=== PATIENT | female | born 1955 | race Caucasian/White ===

== ENCOUNTER → 2016-09-15 | Outpatient (CLI) | payer OTHER ==
[~2016-09-15] MED LIST: AMLO5TAB2 PO; ASCO-262 PO; CARB200T6 PO; CHOL200025 PO; CYAN10006 PO; GLIM1TAB; HYDR-3812 PO; LEVO100T7 PO; LEVO112T55 PO; LINA5TAB PO; LISI-552 PO; PANT40TA3 PO; PRAV40TA2 PO; TRAZ300T3; VENL75CA93 PO
--- OUTSIDE RECORDS SUMMARY | 2016-09-15 10:29 | XMS REPORT | Continuity of Care Document ---
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 No 05/11/16 12:16pm Organ Donor No 05/11/16 12:16pm Resuscitation Status Full Code 05/11/16 12:16pm Problems Active Problems Medical Problem Onset Date Status Hypertensive urgency Unknown Acute Laceration of finger of right hand Unknown Acute Medications Current Home Medications Medication Dose Units Route Directions Days/Qty Instructions Start Date Linagliptin 5 Mg 5 Mg Oral Daily 04/17/16 Venlafaxine Hcl 75 Mg 75 Mg Oral Daily 04/17/16 Lisinopril 20 Mg 10-20 Mg Oral Twice A Day take 1 20mg tab in am, take 1/2 of 20mg tab at hs 04/17/16 Amlodipine Besylate 5 Mg 5 Mg Oral Daily 04/17/16 Pravastatin Sodium 40 Mg 40 Mg Oral Bedtime 04/17/16 Carbamazepine 200 Mg 200 Mg Oral Twice A Day 04/17/16 Pantoprazole Sodium 40 Mg 40 Mg Oral Daily 04/17/16 Ascorbate Calcium 500 Mg 500 Mg Oral Daily 05/11/16 Cholecalciferol (Vitamin D3) 2,000 Unit 4,000 Unit Oral Daily take 2 (2 ,000 units) 05/11/16 Cyanocobalamin (Vitamin B-12) 1,000 Mcg 1,000 Mcg Oral Twice A Day 05/11/16 Past Home Medications Medication Directions Ordered Status Glimepiride 1 Mg Tablet, 04/17/16 Discontinued Trazodone Hcl 300 Mg Tablet, 04/17/16 Discontinued Social History Social History Problem Response Recorded Date/Time Alcohol Use Rarely Uses 05/11/2016 12:16pm Recreational Drug Use No 05/11/2016 12:16pm Recent Foreign Travel No 05/11/2016 12:15pm Recent Infectious Disease Exposure No 05/11/2016 12:15pm Smoking Status Never a Smoker 05/11/2016 12:16pm Recent Hopitalizations No 05/11/2016 12:16pm Query Response Start Date Stop Date Smoking Status Never a Smoker Hospital Discharge Instructions No hospital discharge instructions. Plan of Care Discharge Date 05/11/16 12:54pm Prescriptions See Medication Section Functional Status No functional status results. Allergies, Adverse Reactions, Alerts Allergen Type Severity Reaction Status Last Updated Morphine Allergy Unknown Active 04/17/16 Aspirin Allergy Unknown hx of ulcers Active 05/11/16 lactose ([id number]) Allergy Unknown Active 05/11/16 metformin ([id number]) Allergy Unknown Active 04/17/16 Immunizations Name Given Type DTaP-Tetanus, Dipth, Pertuss P/F (Boostrix) 04/17/16 Administered Vital Signs Acute Vital Signs Vital Response Date/Time Temperature (Fahrenheit) 99.0 degrees F (97.6 - 99.5) 04/26/2016 1:34pm Temperature (Calculated Celsius) 37.70608 degrees C (36.4 - 37.5) 04/26/2016 1:08pm Temperature Source Tympanic 04/26/2016 1:34pm Pulse Rate (adult) 88 bpm (60 - 90) 05/11/2016 12:15pm Respiratory Rate 18 bpm (12 - 24) 04/26/2016 1:34pm O2 Sat by Pulse Oximetry 98 % (88 - 100) 05/11/2016 12:15pm Blood Pressure 156/107 mm Hg 05/11/2016 12:15pm Blood Pressure Mean 123 mm Hg 05/11/2016 12:15pm Pain Numeric Pain Scale 0-No Pain 05/11/2016 12:15pm Height (Feet) 5 feet 05/11/2016 12:15pm Height (Inches) 6.00 inches 05/11/2016 12:15pm Height (Calculated Centimeters) 167.130295 cm 05/11/2016 12:15pm Weight (Pounds) 238 pounds 05/11/2016 12:15pm Weight (Ounces) 7.0 oz 05/11/2016 12:15pm Weight (Calculated Grams) 111575.43 gm 05/11/2016 12:15pm Weight (Calculated Kilograms) 108.191537 kilograms 05/11/2016 12:15pm Calculated BMI 38.5 05/11/2016 12:15pm Capillary Refill Capillary Refill Less Than 3 Seconds 04/17/2016 7:59am Results Pending Laboratory Results Test Name Collection Date/Time Procedures Procedure Status Date Provider(s) BIOPSY OF THYROID Completed 04/26/16 NICKIE DASILVA MD Encounters Encounter Location Arrival/Admit Date Discharge/Depart Date Attending Provider Departed Clinic [facility] 05/11/16 11:56am 05/11/16 12: 54pm BLADE TRIPP MD Registered Clinic [facility] 04/26/16 12:35pm BLADE TRIPP MD Departed Emergency Room [facility] 04/17/16 7:56am 04/17 9:09am USMAN LEIJA MD
--- NOTE | 2016-09-21 20:07 | Diagnostic Imaging Report ---
Bilateral screening mammogram The current study was also evaluated with a Computer Aided Detection (CAD) system. Indication: Screening. No current complaints stated on the questionnaire. COMPARISON: 07/22/15 FINDINGS: The breasts are composed of scattered fibroglandular densities. There are occasional benign-appearing calcifications. Allowing for technique and positional differences, no suspicious change is seen. IMPRESSION: No significant change. ACR BI-RADS Category 2: Benign findings. Result letter will be mailed to the patient. Note: At least 10% of breast cancer is not imaged by mammography. Dictated by: Dictated on workstation # [id number]
== END ==
LOC: RAD 10:26
PROVIDERS: ATTEND Nurse Practitioner Family
DX: Z12.31 Encounter for screening mammogram for malignant neoplasm of breast (principal)
CPT/HCPCS: 77067

== ENCOUNTER → 2018-01-23 | Outpatient (CLI) | payer OTHER ==
[~2018-01-23] VITALS: Ht 167.6 cm; Wt 117.0 kg
[~2018-01-23] MED LIST changes: +ACHD5005 PO; +CATHETER FLUSH 10 ML SYR IV PRN; -HYDR-3812 PO; +REGADENOSON 0.4 MG/5 ML SYR (LEXISCAN) IV ONE
[2018-01-23 08:10] VITALS: BP 188/107
[2018-01-23 08:12] VITALS: BP 200/103
--- NOTE | 2018-01-24 06:49 | STRESS TEST ---
DATE OF SERVICE: 01/23/2018 NUCLEAR MYOVIEW REPORT REFERRING PHYSICIAN: Dr. Sierra. SUMMARY: The patient was injected with 10.17 mCi of technetium-99 Myoview and the resting images were obtained. Then, the patient received a stress dose of 32.9 mCi of technetium-99 and the stress images were acquired. The resting and stress images were reviewed and compared in the short axis, horizontal long axis, and vertical long axis views. Review of the images showed good radiotracer uptake with no significant ischemia or infarction. SSS is 1, SDS 1, TID value 1.02. On the gated images, the left ventricle appeared to be normal size with normal contractility. Calculated ejection fraction of 52%. CONCLUSION: 1. No ischemia or infarction on SPECT images. 2. Normal left ventricular size with normal contractility. Calculated ejection fraction of 52%. Job ID: [id number] DocumentID: [id number] Dictated Date: 01/23/2018 16:11:53 Ballistics Tester Date: 01/23/2018 19:37:31 Dictated By: PEREZ BRAND MD
== END ==
LOC: CARD 06:38
PROVIDERS: ATTEND Internal Medicine
DX: R07.9 Chest pain, unspecified (principal)
CPT/HCPCS: 78452; 93017

== ENCOUNTER → 2018-04-19 | Outpatient (CLI) | payer OTHER ==
[~2018-04-19] MED LIST changes: -AMLO5TAB2 PO; +AMLO5TAB7 PO; -CATHETER FLUSH 10 ML SYR IV PRN; -REGADENOSON 0.4 MG/5 ML SYR (LEXISCAN) IV ONE
--- NOTE | 2018-04-21 19:19 | Diagnostic Imaging Report ---
The current study was also evaluated with a Computer Aided Detection (CAD) system. 3-D tomosynthesis was also performed and reviewed. INDICATION: Digital mammogram bilateral screening. This study was compared to the prior exams of 09/15/2016, 07/22/2015 and 02/13/2014. At this time, there are no current complaints. FINDINGS: There are scattered fibroglandular densities in both breasts which could obscure a lesion. Overall, there does not appear to have been any significant change when compared to the prior exam. No primary or secondary sign of malignancy is noted. 3D tomographic images fail to show any sign of malignancy. IMPRESSION: There is no radiographic evidence for malignancy. ACR BI-RADS Category 1: Negative. Result letter will be mailed to the patient. Note: At least 10% of breast cancer is not imaged by mammography. Dictated by: Dictated on workstation # [id number]
== END ==
LOC: RAD 11:10
PROVIDERS: ATTEND Internal Medicine
DX: Z12.31 Encounter for screening mammogram for malignant neoplasm of breast (principal)
CPT/HCPCS: 77067

== ENCOUNTER 2019-06-27 08:19 | Emergency (ER) | payer MEDICARE, OTHER ==
[~2019-06-27] VITALS: Ht 167 cm; Wt 89.0 kg
[~2019-06-27 08:19] MED LIST changes: -AMLO5TAB7 PO; +AMLO5TAB9 PO; +CYAN-41 PO; -CYAN10006 PO; -GLIM1TAB; +GLIM1TAB2
[2019-06-27] MEDS ORDERED: METF500T19 (08:47)
[2019-06-27] MEDS ORDERED: AMLO2.5T4 (08:47)
[2019-06-27] MEDS ORDERED: ESTR1TAB24 (08:47)
[2019-06-27] MEDS ORDERED: CLON1TAB13 (08:47)
[2019-06-27] MEDS ORDERED: LORA1TAB (08:47)
[2019-06-27] MEDS ORDERED: TETANUS,DIPTH,PERTUSS P/F (BOOSTRIX) 0.5 ML VIAL IM ONE (09:00)
--- NOTE | 2019-06-27 09:18 | ED Fall/Injury ---
General Chief Complaint: Trauma-Non Activation Stated Complaint: HEAD INJ Nursing Triage Note: PT CO OF FALL APPROX 1HOUR AGO AT [facility]. PT DENIES LOC PT HAS KNOT ON FOREHEAD AND SKINNED UP R KNEE. Source: patient Exam Limitations: no limitations History of Present Illness Date Seen by Provider: Jun 27, 2019 Time Seen by Provider: 08:41 Initial Comments Here with report of fall while at the [facility]. States that she tripped over a mat and went down on her right knee and then did hit her forehead on the floor. Has a small abrasion on the bridge of her nose where her glasses cot. Also has abrasion to her knee. Does have hematoma to the forehead. Denies loss consciousness. She is not on blood thinners. Tetanus is not up-to-date. Location Injury Occurred: [facility] Occurred: just prior to arrival (approximately 30-45 minutes ago) Severity: mild, moderate Injuries/Pain Location: head, lower extremity Context: tripped Loss of Consciousness: no loss of consciousness Modifying Factors: Improves With Rest Associated Symptoms (Fall): No Abdominal Pain, No Confusion; Headache; No Nausea/Vomiting, No Neck Pain, No Shortness of Air, No Trouble Walking Allergies and Home Medications Allergies Coded Allergies: aspirin (Verified Allergy, Unknown, hx of ulcers, 05/11/16) lactose (Verified Allergy, Unknown, 05/11/16) metformin (Verified Allergy, Unknown, 04/17/16) morphine (Verified Adverse Reaction, Mild, N/V, 05/14/16) naproxen (Verified Adverse Reaction, Unknown, HX OF ULCERS, 05/11/16) Home Medications Amlodipine Besylate 5 Mg Tablet, 5 MG PO DAILY, (Reported) Ascorbate Calcium 500 Mg Tablet, 500 MG PO DAILY, (Reported) Carbamazepine 200 Mg Tablet, 200 MG PO BID, (Reported) Cholecalciferol (Vitamin D3) 2,000 Unit Tablet, 4,000 UNIT PO DAILY, (Reported) take 2 (2,000 units) Cyanocobalamin (Vitamin B-12) 1,000 Mcg Tablet, 1,000 MCG PO BID, (Reported) Levothyroxine Sodium 112 Mcg Tablet, 112 MCG PO DAILY, (Reported) Linagliptin 5 Mg Tablet, 5 MG PO DAILY, (Reported) Lisinopril 20 Mg Tablet, 30 MG PO DAILY, (Reported) take 1 1/2 of 20mg tab Pantoprazole Sodium 40 Mg Tablet.dr, 40 MG PO DAILY, (Reported) Pravastatin Sodium 40 Mg Tablet, 40 MG PO HS, (Reported) Venlafaxine HCl 75 Mg Cap.er.24h, 75 MG PO DAILY, (Reported) Patient Home Medication List Home Medication List Reviewed: Yes Review of Systems Review of Systems Constitutional: No chills, No fever Eyes: No Symptoms Reported Ears, Nose, Mouth, Throat: see HPI; denies epistaxis, denies throat pain Respiratory: no symptoms reported Cardiovascular: no symptoms reported Gastrointestinal: no symptoms reported Musculoskeletal: joint pain; No neck pain Skin: see HPI, change in color, lesions Psychiatric/Neurological: Headache; Denies Weakness Past Icldcir-Uboyjf-Sjwmed Hx Past Med/Social Hx: Reviewed Nursing Past Med/Soc Hx Patient Social History Alcohol Use: Denies Use Alcohol Beverage of Choice: Beer Recreational Drug Use: No Smoking Status: Never a Smoker Recent Foreign Travel: No Contact w/Someone Who Travel: No Recent Infectious Disease Expo: No Recent Hopitalizations: No Physical Abuse: No Sexual Abuse: No Immunizations Up To Date Tetanus Booster (TDap): Unknown PED Vaccines UTD: No Date of Influenza Vaccine: May 04, 2016 Seasonal Allergies Seasonal Allergies: Yes Past Medical History Surgeries: Yes (L KNEE,R FOOT, L SHOULDER,CATARACT,RETNIA R,) Eye Surgery, Gallbladder, Hysterectomy, Orthopedic, Rectal, Thyroidectomy Respiratory: No Cardiac: Yes High Cholesterol, Hypertension Neurological: Yes Headaches /Migraines, TIA Reproductive Disorders: No 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 Sexually Transmitted Disease: No HIV/AIDS: No Gastrointestinal: Yes (fatty liver) Gastroesophageal Reflux, Polyps, Ulcer, Irritable Bowel Musculoskeletal: Yes (bilat carpal tunnel) Arthritis, Chronic Back Pain Endocrine: Yes (thyroid nodules) Diabetes, Non-Insulin dep Cataract, Double Vision Loss of Vision: Bilateral Hearing Impairment: Denies Cancer: No Psychosocial: Yes Anxiety, Bipolar, Depression Integumentary: No Blood Disorders: No (ANEMIA) Adverse Reaction/Blood Tranf: No (N/A) Family Medical History Reviewed Nursing Family Hx Cardiovascular disease 19 MOTHER G8 SISTER Completed stroke G8 SISTER Diabetes mellitus G8 SISTER FH: skin cancer G8 BROTHER Hypertension G8 SISTER Physical Exam Vital Signs Vital Signs - First Documented 06/27/19 08:25 Temp 37.0 Pulse 90 Resp 18 B/P (MAP) 185/93 (123) Pulse Ox 96 Capillary Refill : Less Than 3 Seconds Height, Weight, BMI Height: 5'6.00" Weight: 258lbs. 0.0oz. 117.700562je; 31.00 BMI Method:Stated General Appearance: WD/WN, no apparent distress HEENT: PERRL/EOMI, TMs normal, pharynx normal Neck: full range of motion, supple Cardiovascular: regular rate, rhythm, no murmur Respiratory: lungs clear, normal breath sounds Gastrointestinal: non tender, soft Back: normal inspection, no CVA tenderness, no vertebral tenderness Extremities: non-tender, normal inspection Neurologic/Psychiatric: alert, oriented x 3 Skin: normal color, warm/dry [place] Coma Score Best Eye Response: (4) Open Spontaneously Best Verbal Response: (5) Oriented Best Motor Response: (6) Obeys Commands Progress/Results/Core Measures Results/Orders My Orders Orders - RADHA HAMMOND MD Ct Head Wo (06/27/19 08:48) Dipht,Pertuss(Acell),Tet Adult (Boostrix (06/27/19 09:00) Acetaminophen Tablet (Tylenol Tablet) (06/27/19 09:22) Medications Given in ED Current Medications Medications Dose Ordered Sig/Rupert Route Start Time Stop Time Status Last Admin Dose Admin Acetaminophen 500 mg STK-MED ONCE .ROUTE 06/27/19 09:22 06/27/19 09:25 DC 06/27/19 09:27 1,000 MG Diphtheria/ Tetanus/Acell Pertussis 0.5 ml ONCE ONCE IM 06/27/19 09:00 06/27/19 09:01 DC 06/27/19 09:14 0.5 ML Vital Signs/I&O 06/27/19 08:25 Temp 37.0 Pulse 90 Resp 18 B/P (MAP) 185/93 (123) Pulse Ox 96 Blood Pressure Mean: 123 POS Progress Progress Note : Progress Note Seen and evaluated. We will get CT of the head due to bruising of the forehead. Tetanus will be updated. Wound cleaned by nursing. Monitor patient. 0944: Tylenol 1 g by mouth given for headache. She is overall doing okay. CT head negative. Discharged home with return precautions. Patient verbalize understanding instructions and agreement with plan. Diagnostic Imaging Diagonstic Imaging: CT Plain Films/CT/US/NM/MRI: head Comments [facility]. POS [place], [place] POS NAME: GIORGI COLLAZO [facility] REC#: [id number] PT STATUS: REG ER : 1955 PHYSICIAN: RADHA HAMMOND MD ADMIT DATE: 06/27/19/ER Draft POSDate of Exam:06/27/19 CT HEAD WO PROCEDURE: CT head without contrast. TECHNIQUE: Multiple contiguous axial images were obtained through the brain without the use of intravenous contrast. Auto Exposure Controls were utilized during the CT exam to meet ALARA standards for radiation dose reduction. INDICATION: Status post fall, hitting head. CORRELATION STUDY: None FINDINGS: Left frontal scalp hematoma is present. The bony calvarium appearing intact. Intracranially, the ventricles and sulci appearing age appropriate. No abnormal areas of decreased attenuation to suggest edema. Mild left basal ganglia calcification. No intracranial hemorrhage. Basilar cisterns are maintained. Mild intracranial vascular calcification. Paranasal sinuses and mastoid air cells generally clear. IMPRESSION: 1. Left frontal scalp hematoma. Negative for acute traumatic intracranial abnormality. Dictated on workstation # [id number] Dict: 06/27/19929 Trans: [birth year]/1932 DO [id number] Interpreted by: CARLOS COLÓN DO Electronically signed by: Reviewed: Reviewed by Me Departure Impression Primary Impression: Head injury Qualified Codes: S09.90XA - Unspecified injury of head, initial encounter Additional Impressions: Knee contusion Qualified Codes: S80.01XA - Contusion of right knee, initial encounter Multiple abrasions Disposition: HOME, SELF-CARE Condition: Improved Departure-Patient Inst. Decision time for Depature: 09:54 Referrals: AMARJIT CORMIER DO (PCP/Family) Primary Care Physician Patient Instructions: Closed Head Injury (DC), Contusion (DC), Skin Abrasions (DC) Add. Discharge Instructions: All discharge instructions reviewed with patient and/or family. Voiced understanding. You may take Tylenol/acetaminophen 1000 mg every 8 hours as needed for pain. Use ice packs to areas of concern 20 minutes per hour as needed. Follow up with your Dr. in a few days for recheck. Return for worse pain, weakness, vision or b alance problems, worsening headache, vomiting or other concerns as needed. RADHA HAMMOND MD Jun 27, 2019 09:18 POS
[2019-06-27] MEDS ORDERED: ACETAMINOPHEN 500 MG TAB (TYLENOL) ONE (09:22)
--- NOTE | 2019-06-27 09:32 | Diagnostic Imaging Report ---
PROCEDURE: CT head without contrast. TECHNIQUE: Multiple contiguous axial images were obtained through the brain without the use of intravenous contrast. Auto Exposure Controls were utilized during the CT exam to meet ALARA standards for radiation dose reduction. INDICATION: Status post fall, hitting head. CORRELATION STUDY: None FINDINGS: Left frontal scalp hematoma is present. The bony calvarium appearing intact. Intracranially, the ventricles and sulci appearing age appropriate. No abnormal areas of decreased attenuation to suggest edema. Mild left basal ganglia calcification. No intracranial hemorrhage. Basilar cisterns are maintained. Mild intracranial vascular calcification. Paranasal sinuses and mastoid air cells generally clear. IMPRESSION: 1. Left frontal scalp hematoma. Negative for acute traumatic intracranial abnormality. Dictated by: Dictated on workstation # [id number]
[2019-06-27 10:03] VITALS: BP 160/85
== END 2019-06-27 10:03 | disposition home or self-care (01) ==
LOC: EDUNIT# 08:19 → ER 08:20
DX: S09.90XA Unspecified injury of head, initial encounter (principal); S80.01XA Contusion of right knee, initial encounter; S00.31XA Abrasion of nose, initial encounter; I10 Essential (primary) hypertension; E11.9 Type 2 diabetes mellitus without complications; F41.9 Anxiety disorder, unspecified; F31.9 Bipolar disorder, unspecified; E78.00 Pure hypercholesterolemia, unspecified; G43.909 Migraine, unspecified, not intractable, without status migrainosus; D64.9 Anemia, unspecified; K21.9 Gastro-esophageal reflux disease without esophagitis; K58.9 Irritable bowel syndrome, unspecified; R40.2142 Coma scale, eyes open, spontaneous, at arrival to emergency department; R40.2252 Coma scale, best verbal response, oriented, at arrival to emergency department; R40.2362 Coma scale, best motor response, obeys commands, at arrival to emergency department; Z86.73 Personal history of transient ischemic attack (TIA), and cerebral infarction without residual deficits; Z23 Encounter for immunization; Z88.6 Allergy status to analgesic agent; Z88.8 Allergy status to other drugs, medicaments and biological substances; Z88.5 Allergy status to narcotic agent; Z90.710 Acquired absence of both cervix and uterus; Z82.49 Family history of ischemic heart disease and other diseases of the circulatory system; Z80.8 Family history of malignant neoplasm of other organs or systems; W01.198A Fall on same level from slipping, tripping and stumbling with subsequent striking against other object, initial encounter; Y92.39 Other specified sports and athletic area as the place of occurrence of the external cause
CPT/HCPCS: 70450; 90471; 90715

== ENCOUNTER → 2020-05-27 | Outpatient (CLI) | payer MEDICARE, OTHER ==
[~2020-05-27] MED LIST changes: +AMLO-250 PO; +AMLO2.5T4; -AMLO5TAB9 PO; +CLON1TAB13; +ESTR1TAB24; -GLIM1TAB2; +GLIM1TAB4; +LORA1TAB; +METF-865; -PANT40TA3 PO; +PANT40TA52 PO
--- NOTE | 2020-05-27 12:38 | Diagnostic Imaging Report ---
INDICATION: Routine screening. Comparison is made to prior mammogram 04/19/2018 and 09/13/2016. 2-D and 3-D bilateral screening mammography was performed with CAD. Scattered fibroglandular densities are identified bilaterally. The parenchymal pattern is stable. No mass or malignant-appearing microcalcifications are seen. Axillae are unremarkable. IMPRESSION: BI-RADS Category 2 No mammographic features suspicious for malignancy are identified. ACR BI-RADS Category 2: Benign findings. Result letter will be mailed to the patient. Note: At least 10% of breast cancer is not imaged by mammography. Dictated by: Dictated on workstation # [id number]
== END ==
LOC: RAD 09:30
PROVIDERS: ATTEND Nurse Practitioner Family
DX: Z12.31 Encounter for screening mammogram for malignant neoplasm of breast (principal)
CPT/HCPCS: 77063; 77067

== ENCOUNTER 2020-11-17 05:29 | Emergency (ER) | payer MEDICARE, OTHER ==
[~2020-11-17] VITALS: Ht 168 cm; Wt 97.0 kg
[~2020-11-17 05:29] MED LIST changes: -LISI-552 PO; +LISI20TA26 PO
[2020-11-17 06:15] LABS: BASOPHILS # (AUTO) 0.1 10^3/uL (0.0-0.1); BASOPHILS % (AUTO) 1 % (0-10); EOSINOPHILS # (AUTO) 0.1 10^3/uL (0.0-0.3); EOSINOPHILS % (AUTO) 1 % (0-10); HEMATOCRIT 43 % (35-52); HEMOGLOBIN 13.8 g/dL (11.5-16.0); LYMPHOCYTES # (AUTO) 1.5 10^3/uL (1.0-4.0); LYMPHOCYTES % (AUTO) 17 % (12-44); MEAN CORPUSCULAR HEMOGLOBIN 30 pg (25-34); MEAN CORPUSCULAR HGB CONC 32 g/dL (32-36); MEAN CORPUSCULAR VOLUME 94 fL (80-99); MEAN PLATELET VOLUME 11.9 fL (9.0-12.2); MONOCYTES # (AUTO) 0.5 10^3/uL (0.0-1.0); MONOCYTES % (AUTO) 6 % (0-12); NEUTROPHILS # (AUTO) 6.6 10^3/uL (1.8-7.8); NEUTROPHILS % (AUTO) 75 % (42-75); PLATELET COUNT 196 10^3/uL (130-400); WHITE BLOOD COUNT 8.7 10^3/uL (4.3-11.0)
[2020-11-17 06:19] LABS: BILIRUBIN,URINE NEGATIVE (NEGATIVE); CLARITY,URINE CLEAR; COLOR,URINE ORANGE; GLUCOSE, URINE (UA) NEGATIVE (NEGATIVE); KETONES,URINE TRACE (NEGATIVE); LEUKOCYTE ESTERASE ,URINE NEGATIVE (NEGATIVE); NITRITE,URINE NEGATIVE (NEGATIVE); PROTEIN,URINE TRACE (NEGATIVE)
--- NOTE | 2020-11-17 06:19 | ED Cardiac General ---
History of Present Illness General Chief Complaint: Cardiac/General Problems Stated Complaint: HIGH BLOOD PRESSURE Source: patient, old records Exam Limitations: no limitations (PERRY SMITH MD) History of Present Illness Date Seen by Provider: Nov 17, 2020 Time Seen by Provider: 05:45 Initial Comments This 63-year-old woman presents to the emergency room with complaints of hypertension, lightheadedness, and dyspnea on exertion for the last few days. She denies any symptoms of infectious illness such as fever, vomiting, or cough. She reports going to an urgent care clinic on Tuesday where her diastolic blood pressure was 102. Her amlodipine dosage was increased. She presents with a log of her blood pressures which seem to be mostly in the 150/80 range. (PERRY SMITH MD) Allergies and Home Medications Allergies Coded Allergies: aspirin (Verified Allergy, Unknown, hx of ulcers, 05/11/16) lactose (Verified Allergy, Unknown, 05/11/16) metformin (Verified Allergy, Unknown, 04/17/16) morphine (Verified Adverse Reaction, Mild, N/V, 05/14/16) naproxen (Verified Adverse Reaction, Unknown, HX OF ULCERS, 05/11/16) Home Medications Amlodipine Besylate 5 Mg Tablet, 5 MG PO DAILY, (Reported) Ascorbate Calcium 500 Mg Tablet, 500 MG PO DAILY, (Reported) Carbamazepine 200 Mg Tablet, 200 MG PO BID, (Reported) Cholecalciferol (Vitamin D3) 2,000 Unit Tablet, 4,000 UNIT PO DAILY, (Reported) take 2 (2,000 units) Cyanocobalamin (Vitamin B-12) 1,000 Mcg Tablet, 1,000 MCG PO BID, (Reported) Levothyroxine Sodium 112 Mcg Tablet, 112 MCG PO DAILY, (Reported) Linagliptin 5 Mg Tablet, 5 MG PO DAILY, (Reported) Lisinopril 20 Mg Tablet, 30 MG PO DAILY, (Reported) take 1 1/2 of 20mg tab Pantoprazole Sodium 40 Mg Tablet.dr, 40 MG PO DAILY, (Reported) Pravastatin Sodium 40 Mg Tablet, 40 MG PO HS, (Reported) Venlafaxine HCl 75 Mg Cap.er.24h, 75 MG PO DAILY, (Reported) Patient Home Medication List Home Medication List Reviewed: Yes (PERRY SMITH MD) Review of Systems Review of Systems Constitutional: no symptoms reported EENTM: No Symptoms Reported Respiratory: No Symptoms Reported Cardiovascular: See HPI Gastrointestinal: No Symptoms Reported Genitourinary: No Symptoms Reported Musculoskeletal: no symptoms reported Skin: no symptoms reported Psychiatric/Neurological: See HPI Endocrine: No Symptoms Reported Hematologic/Lymphatic: No Symptoms Reported (PERRY SMITH MD) Past Jggfzub-Ckqwhg-Sxcbpr Hx Past Med/Social Hx: Reviewed Nursing Past Med/Soc Hx (PERRY SMITH MD) Patient Social History Alcohol Use: Denies Use Number of Drinks Today: AA Alcohol Beverage of Choice: Beer Smoking Status: Never a Smoker Recent Hopitalizations: No (PERRY SMITH MD) Immunizations Up To Date Tetanus Booster (TDap): Unknown PED Vaccines UTD: No Date of Influenza Vaccine: May 04, 2016 (PERRY SMITH MD) Seasonal Allergies Seasonal Allergies: Yes (PERRY SMITH MD) Past Medical History Surgeries: Yes (L KNEE,R FOOT, L SHOULDER,CATARACT) Eye Surgery, Gallbladder, Hysterectomy, Orthopedic, Rectal, Thyroidectomy Respiratory: No Cardiac: Yes High Cholesterol, Hypertension Neurological: Yes Headaches /Migraines, TIA Reproductive Disorders: No [employer] History: Hysterectomy Sexually Transmitted Disease: No HIV/AIDS: No Gastrointestinal: Yes (fatty liver) Gastroesophageal Reflux, Polyps, Ulcer, Irritable Bowel Musculoskeletal: Yes (bilat carpal tunnel) Arthritis, Chronic Back Pain Endocrine: Yes (thyroid nodules) Diabetes, Non-Insulin dep HEENT: Yes Cataract, Double Vision Loss of Vision: Bilateral Hearing Impairment: Denies Cancer: No Psychosocial: Yes Anxiety, Bipolar, Depression Integumentary: No Blood Disorders: No (ANEMIA) Adverse Reaction/Blood Tranf: No (N/A) (PERRY SMITH MD) Family Medical History Cardiovascular disease 19 MOTHER G8 SISTER Completed stroke G8 SISTER Diabetes mellitus G8 SISTER FH: skin cancer G8 BROTHER Hypertension G8 SISTER Physical Exam Vital Signs Vital Signs - First Documented 11/17/20 05:37 Temp 35.2 Pulse 86 Resp 22 B/P (MAP) 136/65 (88) O2 Delivery Room Air (JULES CHERRY MD) Vital Signs Capillary Refill : Less Than 3 Seconds (PERRY SMITH MD) Height, Weight, BMI Height: 5'6.00" Weight: 258lbs. 0.0oz. 117.017587xu; 31.00 BMI Method:Stated General Appearance: WD/WN, Anxious HEENT: PERRL/EOMI, Normal ENT Inspection Neck: Normal Inspection Respiratory: Lungs Clear, Normal Breath Sounds Cardiovascular: Regular Rate, Rhythm, No Edema, No Murmur Gastrointestinal: Non Tender, Soft Extremity: Normal Inspection, No Pedal Edema Neurologic/Psychiatric: Alert, Oriented x3, No Motor/Sensory Deficits, dsp engineer II- XII Norm as Tested, Other (Anxious) Skin: Normal Color, Warm/Dry (PERRY SMITH MD) Progress/Results/Core Measures Results/Orders Lab Results Laboratory Tests Test 11/17/20 06:05 11/17/20 06:13 Range/Units White Blood Count 8.7 4.3-11.0 10^3/uL Red Blood Count 4.60 3.80-5.11 10^6/uL Hemoglobin 13.8 11.5-16.0 g/dL Hematocrit 43 35-52 % Mean Corpuscular Volume 94 80-99 fL Mean Corpuscular Hemoglobin 30 25-34 pg Mean Corpuscular Hemoglobin Concent 32 32-36 g/dL Red Cell Distribution Width 13.4 10.0-14.5 % Platelet Count 196 130-400 10^3/uL Mean Platelet Volume 11.9 9.0-12.2 fL Immature Granulocyte % (Auto) 1 % Neutrophils (%) (Auto) 75 42-75 % Lymphocytes (%) (Auto) 17 12-44 % Monocytes (%) (Auto) 6 0-12 % Eosinophils (%) (Auto) 1 0-10 % Basophils (%) (Auto) 1 0-10 % Neutrophils # (Auto) 6.6 1.8-7.8 10^3/uL Lymphocytes # (Auto) 1.5 1.0-4.0 10^3/uL Monocytes # (Auto) 0.5 0.0-1.0 10^3/uL Eosinophils # (Auto) 0.1 0.0-0.3 10^3/uL Basophils # (Auto) 0.1 0.0-0.1 10^3/uL Immature Granulocyte # (Auto) 0.0 0.0-0.1 10^3/uL Sodium Level 141 135-145 MMOL/L Potassium Level 3.7 3.6-5.0 MMOL/L Chloride Level 101 98-107 MMOL/L Carbon Dioxide Level 25 21-32 MMOL/L Anion Gap 15 H 5-14 MMOL/L Blood Urea Nitrogen 16 7-18 MG/DL Creatinine 1.18 0.60-1.30 MG/DL Estimat Glomerular Filtration Rate 46 BUN/Creatinine Ratio 14 Glucose Level 165 H 70-105 MG/DL Calcium Level 9.5 8.5-10.1 MG/DL Corrected Calcium 9.3 8.5-10.1 MG/DL Magnesium Level 1.8 1.6-2.4 MG/DL Total Bilirubin 0.4 0.1-1.0 MG/DL Aspartate Amino Transf (AST/SGOT) 10 5-34 U/L Alanine Aminotransferase (ALT/SGPT) 12 0-55 U/L Alkaline Phosphatase 82 40-136 U/L Troponin I < 0.028 <0.028 NG/ML Total Protein 7.3 6.4-8.2 GM/DL Albumin 4.2 3.2-4.5 GM/DL Thyroid Stimulating Hormone (TSH) 1.21 0.35-4.94 UIU/ML Free Thyroxine 1.48 0.70-1.48 NG/DL Urine Color ORANGE Urine Clarity CLEAR Urine pH 6.0 5-9 Urine Specific Allyn >=1.030 1.016-1.022 Urine Protein TRACE H NEGATIVE Urine Glucose (UA) NEGATIVE NEGATIVE Urine Ketones TRACE H NEGATIVE Urine Nitrite NEGATIVE NEGATIVE Urine Bilirubin NEGATIVE NEGATIVE Urine Urobilinogen 0.2 < = 1.0 MG/DL Urine Leukocyte Esterase NEGATIVE NEGATIVE Urine RBC (Auto) TRACE-I NEGATIVE Urine RBC RARE /HPF Urine WBC RARE /HPF Urine Squamous Epithelial Cells 2-5 /HPF Urine Crystals NONE /LPF Urine Bacteria NEGATIVE /HPF Urine Casts NONE /LPF Urine Mucus SMALL H /LPF Urine Culture Indicated NO (JULES CHERRY MD) Vital Signs/I&O 11/17/20 05:37 Temp 35.2 Pulse 86 Resp 22 B/P (MAP) 136/65 (88) O2 Delivery Room Air (JULES CHERRY MD) Progress Progress Note : Time: 06:18 Progress Note Because of patient's anxiety I asked her to take her morning BuSpar. Labs are pending. The EKG was unremarkable. Care is being transitioned to Dr. Cherry at this time. (PERRY SMITH MD) Progress Note : Time: 07:10 Progress Note Patient care assumed a shift change with laboratory studies pending. Lab results obtained and evaluated. All of her labs are within normal limits. No abnormal cardiac function or electrolytes. Patient states that she is feeling better. She states she feels like her SOB and chest tightness happen when she gets anxious. She was concerned about her thyroid functions, It too, is within normal limits. Patient has a follow up appointment with her primary care doctor on of this next week. She is encouraged to talk to her provider about these episodes. She verbalizes understanding of her discharge instructions. All questions are sought and answered. She is stable for discharge. (JULES CHERRY MD) Initial ECG Impression Date: Nov 17, 2020 Initial ECG Impression Time: 05:55 Initial ECG Rate: 79 Initial ECG Rhythm: Normal Sinus Initial ECG Impression: Normal Comment Normal sinus rhythm with no ST elevation or depression. No abnormal intervals or axis deviation. (PERRY SMITH MD) Departure Impression Primary Impression: Anxiety about health Additional Impression: High blood pressure Qualified Codes: I10 - Essential (primary) hypertension Disposition: 01 HOME, SELF-CARE Condition: Stable Departure-Patient Inst. Decision time for Depature: 07:13 (JULSE CHERRY MD) Referrals: AMARJIT CORMIER DO (PCP/Family) Primary Care Physician Patient Instructions: Anxiety, Adult ED, High Blood Pressure Emergencies Add. Discharge Instructions: Please keep your follow up appointment with your primary care doctor on . Continue to take your medications as prescribed. Return to the Emergency Department for any new, concerning or emergent symptoms. PERRY SMITH MD Nov 17, 2020 06:19 JULES CHERRY MD Nov 17, 2020 07:14
[2020-11-17 06:28] LABS: BACTERIA,URINE NEGATIVE /HPF; RBC,URINE RARE /HPF; WBC,URINE RARE /HPF
[2020-11-17 06:28] LABS: ALANINE AMINOTRANSFERASE 12 U/L (0-55); ALBUMIN 4.2 GM/DL (3.2-4.5); ALKALINE PHOSPHATASE 82 U/L (40-136); BILIRUBIN,TOTAL 0.4 MG/DL (0.1-1.0); BUN/CREATININE RATIO 14; CALCIUM 9.5 MG/DL (8.5-10.1); CARBON DIOXIDE 25 MMOL/L (21-32); CHLORIDE 101 MMOL/L (98-107); CREATININE SERUM 1.18 MG/DL (0.60-1.30); GFR ESTIMATED 46; GLUCOSE 165 MG/DL (70-105); MAGNESIUM 1.8 MG/DL (1.6-2.4); POTASSIUM 3.7 MMOL/L (3.6-5.0); SODIUM 141 MMOL/L (135-145); TOTAL PROTEIN 7.3 GM/DL (6.4-8.2)
[2020-11-17 06:49] LABS: FREE T4 (FREE THYROXINE) 1.48 NG/DL (0.70-1.48)
[2020-11-17 07:21] VITALS: BP 153/82
== END 2020-11-17 07:21 | disposition home or self-care (01) ==
LOC: EDUNIT# 05:29 → ER 05:30
DX: F41.9 Anxiety disorder, unspecified (principal); I10 Essential (primary) hypertension; E78.00 Pure hypercholesterolemia, unspecified; K21.9 Gastro-esophageal reflux disease without esophagitis; E11.9 Type 2 diabetes mellitus without complications; F32.9 Major depressive disorder, single episode, unspecified; Z88.5 Allergy status to narcotic agent; Z88.8 Allergy status to other drugs, medicaments and biological substances; Z86.73 Personal history of transient ischemic attack (TIA), and cerebral infarction without residual deficits
CPT/HCPCS: 36415; 80053; 81000; 83735; 84439; 84443; 84484; 85025; 93005; 93041

== ENCOUNTER → 2021-06-24 | Outpatient (CLI) | payer MEDICARE, OTHER ==
--- NOTE | 2021-06-25 11:17 | Diagnostic Imaging Report ---
INDICATION: Routine screening. COMPARISON is made with prior mammograms of 05/27/2020 and 04/19/2018. 2-D and 3-D bilateral screening mammography was performed with CAD. Scattered fibroglandular densities are identified bilaterally. The parenchymal pattern is stable. No dominant mass or malignant-appearing microcalcifications are identified. Axillae are unremarkable. IMPRESSION: BI-RADS Category 1 No mammographic features suspicious for malignancy are identified. ACR BI-RADS Category 1: Negative. Result letter will be mailed to the patient. Note: At least 10% of breast cancer is not imaged by mammography. Dictated by: Dictated on workstation # [id number]
== END ==
LOC: RAD 14:27
PROVIDERS: ATTEND Internal Medicine
DX: Z12.31 Encounter for screening mammogram for malignant neoplasm of breast (principal)
CPT/HCPCS: 77063; 77067

== ENCOUNTER → 2021-11-03 | Outpatient (CLI) | payer MEDICARE, OTHER ==
--- NOTE | 2021-11-03 15:41 | Diagnostic Imaging Report ---
INDICATION: Postmenopausal screening for osteoporosis COMPARISON: None FINDINGS: AP Spine L1-L4: [BMD (g/cm2): 1.560] [T-Score: 3.0] [Z-Score: 3.8] [BMD Previous: na] [BMD % Change: na] LT Hip Neck: [BMD (g/cm2): 0982] [T-Score: -0.4] [Z-Score: 0.7] LT Hip Total: [BMD (g/cm2):1.142] [T-Score:1.1] [Z-Score: 1.8] [BMD Previous: na] [BMD % Change: na] RT Hip Neck: [BMD (g/cm2):0.949] [T-Score:-0.6] [Z-Score:0.4] RT Hip Total: [BMD (g/cm2):1.160] [T-score:1.2] [Z-Score:2.0] [BMD Previous:na] [BMD % Change:na] *Indicates significant change from prior examination based on 95% confidence level. World Health Organization criteria for BMD interpretation classify patients as Normal (T-score at or above -1.0), Osteopenic (T-score between -1.0 and -2.5) or Osteoporotic (T-score at or below -2.5). LIMITATIONS AND MODIFICATION: None. FRACTURE RISK (FRAX SCORE): The ten year probability of (%): Major Osteoporotic Fracture: [na] Hip Fracture: [na] IMPRESSION: 1. Normal bone mineral density. 2. Baseline examination. 3. See below National Osteoporosis Foundation guidelines on when to potentially initiate pharmacologic therapy. Based on the National Osteoporosis Foundation Guidelines, pharmacologic treatment should be initiated in any of the following, unless clinical conditions suggest otherwise: * Any patient with prior fragility fracture of the hip or vertebrae. A spine fracture indicates 5X risk for subsequent spine fracture and 2X risk for subsequent hip fracture. * Osteoporosis (T-score <-2.5). * Postmenopausal women and men age 50 and older with low bone mass/osteopenia (T-score between -1.0 and -2.5) by DXA and 10-year major osteoporotic fracture greater than 20% or a 10-year probability of hip fracture greater than 3%. These fracture risks are supplied above in the FRAX score, if applicable. * Clinician judgement and/or patient preferences may indicate treatment for people with 10-year fracture probabilities above or below these levels. Dictated by: Dictated on workstation # [id number]
== END ==
LOC: RAD 09:02
PROVIDERS: ATTEND Nurse Practitioner Family
DX: Z13.820 Encounter for screening for osteoporosis (principal); Z78.0 Asymptomatic menopausal state
CPT/HCPCS: 77080

== ENCOUNTER 2023-03-10 16:49 | Emergency (ER) | payer MEDICARE, OTHER ==
--- NOTE | 2023-03-10 17:25 | ED Psychosocial ---
General Chief Complaint: Altered Mental Status Stated Complaint: PSYCH EVAL Nursing Triage Note: PT AMB TO RM 5 WITH SISTER IN LAW WITH C/O HEARING A MAN TALK TO HER 24 HOURS A DAY AND SISTER IN LAW STATES SHE HAS CALLED 911 MULTIPLE TIMES RECENTLY ABOUT IT. PT RECENTLY AT [facility] IN [place]. PTS FAMILY STATES SHE WAS ON HER WAY HOME FROM HER PSYCH APPOINTMET IN [place] AND BEGAN TO HALLUCINATE AND INCREASED AGITATION Source: patient, family Exam Limitations: no limitations History of Present Illness Date Seen by Provider: Mar 10, 2023 Time Seen by Provider: 17:20 Initial Comments Patient is a 67-year-old female with a history of major depressive disorder, type 2 diabetes, generalized anxiety disorder, bipolar disorder, GERD, psychophysiologic insomnia, brief psychotic disorder who presents ED with [id number] for hallucinations. Patient is currently a resident at [facility]. Over the past 4 days she states men are trying to get Santa who is the nurse over at the facility. She states "black men" are coming after her. She reports feeling threatened. She is not wanting to sleep at [facility]. She is not wanting to go into her room as she is terrified. She was recently discharged from [facility] services last week and had some medication adjustments. Patient was evaluated by Dr. Abbasi her psychiatrist at [facility] today. Made adjustments to her buspirone, Seroquel and meantine. On the drive over from [place] patient has had increased hallucinations, agitation and aggressiveness. Symptoms since last year. She denies of any suicidal homicidal thoughts. She denies headache, dizziness, chest pain, shortness of breath,abdominal pain, vomiting, diarrhea fever, c hills, urinary symptoms. Allergies and Home Medications Allergies Coded Allergies: aspirin (Verified Allergy, Unknown, hx of ulcers, 05/11/16) lactose (Verified Allergy, Unknown, 05/11/16) metformin (Verified Allergy, Unknown, 04/17/16) morphine (Verified Adverse Reaction, Mild, N/V, 05/14/16) naproxen (Verified Adverse Reaction, Unknown, HX OF ULCERS, 05/11/16) Patient Home Medication List Home Medication List Reviewed: Yes Amlodipine Besylate (Amlodipine Besylate) 5 Mg Tablet, 5 MG PO DAILY, (Reported) Entered as Reported by: JUAN POST on 04/17/16 0811 Amlodipine Besylate (Amlodipine Besylate) 2.5 Mg Tablet, (Reported) Entered as Reported by: FE RAMIREZ on 06/27/19 0847 Ascorbate Calcium (Vitamin C) 500 Mg Tablet, 500 MG PO DAILY, (Reported) Entered as Reported by: JULIA MERAZ on 05/11/16 1211 Carbamazepine (Carbamazepine) 200 Mg Tablet, 200 MG PO BID, (Reported) Entered as Reported by: JUAN POST on 04/17/16 0811 Cholecalciferol (Vitamin D3) (Vitamin D3) 2,000 Unit Tablet, 4,000 UNIT PO DAILY, (Reported) Entered as Reported by: JULIA MERAZ on 05/11/16 1211 Clonazepam (Clonazepam) 1 Mg Tablet, (Reported) Entered as Reported by: FE RAMIREZ on 06/27/19 0847 Cyanocobalamin (Vitamin B-12) (Vitamin B-12) 1,000 Mcg Tablet, 1,000 MCG PO BID, (Reported) Entered as Reported by: JULIA MERAZ on 05/11/16 1211 Estradiol (Estradiol Tablet) 1 Mg Tablet, (Reported) Entered as Reported by: FE RAMIREZ on 06/27/19 0847 Levothyroxine Sodium (Levothyroxine Sodium) 112 Mcg Tablet, 112 MCG PO DAILY, (Reported) Entered as Reported by: JULIA MERAZ on 07/12/16 1048 Linagliptin (Tradjenta) 5 Mg Tablet, 5 MG PO DAILY, (Reported) Entered as Reported by: JUAN POST on 04/17/16 0811 Lisinopril (Lisinopril) 20 Mg Tablet, 30 MG PO DAILY, (Reported) Entered as Reported by: JUAN POST on 04/17/16 0811 Lorazepam (Lorazepam) 1 Mg Tablet, (Reported) Entered as Reported by: FE RAMIREZ on 06/27/19 0847 Metformin HCl (Metformin HCl ER) 500 Mg Tab.er.24h, (Reported) Entered as Reported by: FE RAMIREZ on 06/27/19 0847 Pantoprazole Sodium (Pantoprazole Sodium) 40 Mg Tablet.dr, 40 MG PO DAILY, (Reported) Entered as Reported by: JUAN POST on 04/17/16 0811 Pravastatin Sodium (Pravastatin Sodium) 40 Mg Tablet, 40 MG PO HS, (Reported) Entered as Reported by: JUAN POST on 04/17/16810 Venlafaxine HCl (Venlafaxine HCl ER) 75 Mg Cap.er.24h, 75 MG PO DAILY, (Reported) Entered as Reported by: JUAN POST on 04/17/16810 Review of Systems Constitutional: No chills EENTM: No blurred vision Respiratory: No cough, No dyspnea on exertion Cardiovascular: No chest pain Gastrointestinal: No abdominal pain, No nausea, No vomiting Genitourinary: No decreased output Musculoskeletal: No back pain Skin: No change in color, No change in hair/nails Psychiatric/Neurological: Other (Hallucinations, agitation) All Other Systems Reviewed Negative Unless Noted: Yes Past Uylbeqf-Vrhcgg-Qfuxjc Hx Patient Social History Tobacco Use?: No Use of E-Cig and/or Vaping dev: No Substance use?: No Alcohol Use?: No Pt feels they are or have been: No Immunizations Up To Date Tetanus Booster (TDap): Unknown PED Vaccines UTD: No Seasonal Allergies Seasonal Allergies: Yes Past Medical History Surgery/Hospitalization HX: DEPRESSION, ANXIETY, PERSONALITY DO, AMNESIA, HLD, HTN, INSOMINIA, HYPERHIDROSIS, SCHIZOPHRENIA Surgeries: Yes (L KNEE,R FOOT, L SHOULDER,CATARACT) Eye Surgery, Gallbladder, Hysterectomy, Orthopedic, Rectal, Thyroidectomy Respiratory: No Cardiac: Yes High Cholesterol, Hypertension Neurological: Yes Headaches /Migraines, TIA Reproductive Disorders: No [employer] History: Hysterectomy Sexually Transmitted Disease: No HIV/AIDS: No Gastrointestinal: Yes (fatty liver) Gastroesophageal Reflux, Polyps, Ulcer, Irritable Bowel Musculoskeletal: Yes (bilat carpal tunnel) Arthritis, Chronic Back Pain Endocrine: Yes (thyroid nodules) Diabetes, Non-Insulin dep HEENT: Yes Cataract, Double Vision Loss of Vision: Bilateral Hearing Impairment: Denies Cancer: No Psychosocial: Yes Anxiety, Bipolar, Depression Integumentary: No Blood Disorders: No (ANEMIA) Adverse Reaction/Blood Tranf: No (N/A) Family Medical History Cardiovascular disease 19 MOTHER G8 SISTER Completed stroke G8 SISTER Diabetes mellitus G8 SISTER FH: skin cancer G8 BROTHER Hypertension G8 SISTER Physical Exam Vital Signs - First Documented 03/10/23 17:02 Temp 37.3 Pulse 104 Resp 17 B/P (MAP) 182/91 (121) Pulse Ox 96 O2 Delivery Room Air Capillary Refill : Height, Weight, BMI Height: 5'6.00" Weight: 258lbs. 0.0oz. [id number]; 34.00 BMI Method:Stated General Appearance: WD/WN HEENT: PERRL/EOMI, normal ENT inspection, TMs normal, pharynx normal Neck: non-tender, full range of motion, supple Respiratory: chest non-tender, lungs clear, normal breath sounds, no respiratory distress, no accessory muscle use Cardiovascular: regular rate, rhythm, no edema, no gallop, no JVD Gastrointestinal: normal bowel sounds, non tender, soft, no organomegaly Extremities: normal range of motion, non-tender, normal inspection, no pedal edema Neurologic/Psychiatric: record changer II-XII nml as tested, no motor/sensory deficits, alert, normal mood/affect, oriented x 3 Appearance/Memory: appropriate appearance Behavior/Eye Contact: good eye contact Thoughts/Hallucinations: visual hallucinations Skin: normal color Progress/Results/Core Measures Results/Orders Lab Results Laboratory Tests Test 03/10/23 17:51 03/10/23 18:00 03/10/23 18:32 Range/Units Influenza Type A (RT-PCR) Not Detected Not Detecte Influenza Type B (RT-PCR) Not Detected Not Detecte SARS-CoV-2 RNA (RT-PCR) Not Detected Not Detecte White Blood Count 13.9 H 4.3-11.0 10^3/uL Red Blood Count 4.22 3.80-5.11 10^6/uL Hemoglobin 11.8 11.5-16.0 g/dL Hematocrit 37 35-52 % Mean Corpuscular Volume 87 80-99 fL Mean Corpuscular Hemoglobin 28 25-34 pg Mean Corpuscular Hemoglobin Concent 32 32-36 g/dL Red Cell Distribution Width 13.7 10.0-14.5 % Platelet Count 242 130-400 10^3/uL Mean Platelet Volume 10.8 9.0-12.2 fL Immature Granulocyte % (Auto) 1 % Neutrophils (%) (Auto) 80 H 42-75 % Lymphocytes (%) (Auto) 12 12-44 % Monocytes (%) (Auto) 5 0-12 % Eosinophils (%) (Auto) 2 0-10 % Basophils (%) (Auto) 0 0-10 % Neutrophils # (Auto) 11.2 H 1.8-7.8 10^3/uL Lymphocytes # (Auto) 1.7 1.0-4.0 10^3/uL Monocytes # (Auto) 0.7 0.0-1.0 10^3/uL Eosinophils # (Auto) 0.3 0.0-0.3 10^3/uL Basophils # (Auto) 0.0 0.0-0.1 10^3/uL Immature Granulocyte # (Auto) 0.1 0.0-0.1 10^3/uL Sodium Level 137 135-145 MMOL/L Potassium Level 4.1 3.6-5.0 MMOL/L Chloride Level 101 98-107 MMOL/L Carbon Dioxide Level 24 21-32 MMOL/L Anion Gap 12 5-14 MMOL/L Blood Urea Nitrogen 17 7-18 MG/DL Creatinine 1.10 0.60-1.30 MG/DL Estimat Glomerular Filtration Rate 54 BUN/Creatinine Ratio 15 Glucose Level 113 H 70-105 MG/DL Calcium Level 9.3 8.5-10.1 MG/DL Corrected Calcium 9.5 8.5-10.1 MG/DL Total Bilirubin 0.3 0.1-1.0 MG/DL Aspartate Amino Transf (AST/SGOT) 13 5-34 U/L Alanine Aminotransferase (ALT/SGPT) 15 0-55 U/L Alkaline Phosphatase 87 40-136 U/L Total Protein 6.9 6.4-8.2 GM/DL Albumin 3.8 3.2-4.5 GM/DL Salicylates Level < 5.0 L 5.0-20.0 MG/DL Acetaminophen Level < 10 L 10-30 UG/ML Serum Alcohol < 10 <10 MG/DL Urine Color YELLOW Urine Clarity CLEAR Urine pH 5.5 5-9 Urine Specific Rush 1.015 L 1.016-1.022 Urine Protein NEGATIVE NEGATIVE Urine Glucose (UA) NEGATIVE NEGATIVE Urine Ketones NEGATIVE NEGATIVE Urine Nitrite NEGATIVE NEGATIVE Urine Bilirubin NEGATIVE NEGATIVE Urine Urobilinogen 0.2 < = 1.0 MG/DL Urine Leukocyte Esterase 1+ H NEGATIVE Urine RBC (Auto) TRACE H NEGATIVE Urine RBC 0-2 /HPF Urine WBC 2-5 /HPF Urine Squamous Epithelial Cells 5-10 /HPF Urine Crystals PRESENT H /LPF Urine Amorphous Sediment RARE SHARMIN URATES H /LPF Urine Bacteria TRACE /HPF Urine Casts NONE /LPF Urine Mucus SMALL H /LPF Urine Culture Indicated NO Urine Opiates Screen NEGATIVE NEGATIVE Urine Oxycodone Screen NEGATIVE NEGATIVE Urine Methadone Screen NEGATIVE NEGATIVE Urine Propoxyphene Screen NEGATIVE NEGATIVE Urine Barbiturates Screen NEGATIVE NEGATIVE Ur Tricyclic Antidepressants Screen POSITIVE H NEGATIVE Urine Phencyclidine Screen NEGATIVE NEGATIVE Urine Amphetamines Screen NEGATIVE NEGATIVE Urine Methamphetamines Screen NEGATIVE NEGATIVE Urine Benzodiazepines Screen NEGATIVE NEGATIVE Urine Cocaine Screen NEGATIVE NEGATIVE Urine Cannabinoids Screen NEGATIVE NEGATIVE My Orders Orders - LOUIS VALDES PA Ua Culture If Indicated (03/10/23 17:19) Cbc With Automated Diff (03/10/23 17:19) Comprehensive Metabolic Panel (03/10/23 17:19) Alcohol (03/10/23 17:19) Drug Screen Stat (Urine) (03/10/23 17:19) Acetaminophen (03/10/23 17:19) Salicylate (03/10/23 17:19) Ekg Tracing (03/10/23 17:19) Covid 19 Inhouse Test (03/10/23 17:19) Influenza A And B By Pcr (03/10/23 17:19) Bh Status Checks/Observation O Q15M (03/10/23 17:52) Amlodipine Tablet (Amlodipine Tablet) (03/10/23 18:15) Chest 1 View, Ap/Pa Only (03/10/23 19:23) Medically Cleared Psych Txfr (03/10/23 19:42) Medications Given in ED Current Medications Medications Dose Ordered Sig/Rupert Route Start Time Stop Time Status Last Admin Dose Admin Amlodipine Besylate 5 mg ONCE ONCE PO 03/10/23 18:15 03/10/23 18:16 DC 03/10/23 18:11 5 MG Vital Signs/I&O 03/10/23 03/10/23 17:02 21:50 Temp 37.3 Pulse 104 94 Resp 17 18 B/P (MAP) 182/91 (121) 126/93 Pulse Ox 96 97 O2 Delivery Room Air Room Air Blood Pressure Mean: 121 Comment Sinus tachycardia, 105 bpm, QRS duration 93 MS, QTc 394 Departure Communication (PCP) Patient with a history of type 2 diabetes, essential hypertension, specified mental disorder, major depressive order, bipolar disorder, brief psychotic disorder, psychophysiological insomnia who presents ED with sister for hallucinations. Patient was recently hospitalized 1 week ago at [facility]. She was discharged and sent to [facility]. Over the past 4 days she has been having active hallucinations. She reports seeing people that want to hurt her. They also want to hurt staff at [facility]. She became agitated this evening after following up with her psychiatrist Dr. Abbasi at [facility] in [place]. She had medication changes performed today but has not been able to start. Patient with active visual hallucinations. She denies any suicidal or homicidal thoughts. Currently low risk. Sister at bedside. Currently voluntary for inpatient psych. General psych work-up was initiated. White blood count 13.9, chemistry grossly unremarkable. Blood sugar 113. Urinalysis trace leukocytes and red blood cells without significant evidence of UTI. Drug screen unremarkable. Chest x-ray unremarkable. EKG sinus rhythm. Patient does not appear toxic or septic. She has been cooperative. She did not require any medication. She requesting inpatient. She has been seen at [facility] and [facility] in the past. They are requesting transfer to their facility. Patient is medically cleared and stable. COVID influenza was negative. [facility] by Dr. Espinal who agreed to accept patient . They agreed for secure transport. Impression Primary Impression: Hallucinations Disposition: 02 XFER SHT-TRM HOSP Condition: Stable Transfer BH Medically Cleared for Xfer: Yes Transfer Reason: Exceeds level of care Time Spoke to Accepting Phy: 19:41 Transfer Progress Notes Accepted by Dr. Tai Transfer Time: 19:41 Transfer Facility: [facility] Method of Transfer: EMS Departure-Patient Inst. Referrals: AMARJIT CORMIER DO (PCP) Primary Care Physician LOLI CORMIER DNP (Family) Primary Care Physician LOUIS VALDES Mar 10, 2023 17:25
[2023-03-10 18:05] LABS: BASOPHILS % (AUTO) 0 % (0-10); EOSINOPHILS # (AUTO) 0.3 10^3/uL (0.0-0.3); EOSINOPHILS % (AUTO) 2 % (0-10); HEMATOCRIT 37 % (35-52); HEMOGLOBIN 11.8 g/dL (11.5-16.0); LYMPHOCYTES # (AUTO) 1.7 10^3/uL (1.0-4.0); LYMPHOCYTES % (AUTO) 12 % (12-44); MEAN CORPUSCULAR HEMOGLOBIN 28 pg (25-34); MEAN CORPUSCULAR HGB CONC 32 g/dL (32-36); MEAN CORPUSCULAR VOLUME 87 fL (80-99); MEAN PLATELET VOLUME 10.8 fL (9.0-12.2); MONOCYTES # (AUTO) 0.7 10^3/uL (0.0-1.0); MONOCYTES % (AUTO) 5 % (0-12); NEUTROPHILS # (AUTO) 11.2 10^3/uL (1.8-7.8); NEUTROPHILS % (AUTO) 80 % (42-75); PLATELET COUNT 242 10^3/uL (130-400); WHITE BLOOD COUNT 13.9 10^3/uL (4.3-11.0)
[2023-03-10] MEDS ORDERED: amLODIPine 5 MG TABLET PO ONE (18:15)
[2023-03-10 18:16] LABS: ALBUMIN 3.8 GM/DL (3.2-4.5); CHLORIDE 101 MMOL/L (98-107); POTASSIUM 4.1 MMOL/L (3.6-5.0); SODIUM 137 MMOL/L (135-145)
[2023-03-10 18:17] LABS: CALCIUM 9.3 MG/DL (8.5-10.1)
[2023-03-10 18:19] LABS: GLUCOSE 113 MG/DL (70-105); TOTAL PROTEIN 6.9 GM/DL (6.4-8.2)
[2023-03-10 18:20] LABS: BILIRUBIN,TOTAL 0.3 MG/DL (0.1-1.0); CARBON DIOXIDE 24 MMOL/L (21-32)
[2023-03-10 18:22] LABS: ALKALINE PHOSPHATASE 87 U/L (40-136); GFR ESTIMATED 54
[2023-03-10 18:24] LABS: BUN/CREATININE RATIO 15
[2023-03-10 18:25] LABS: ACETAMINOPHEN < 10 UG/ML (10-30); ALANINE AMINOTRANSFERASE 15 U/L (0-55); SALICYLATE < 5.0 MG/DL (5.0-20.0)
[2023-03-10 18:58] LABS: AMPHETAMINE SCREEN, URINE NEGATIVE (NEGATIVE); BARBITURATE SCREEN URINE NEGATIVE (NEGATIVE); BENZODIAZEPINES SCREEN URINE NEGATIVE (NEGATIVE); CANNABINOID SCREEN, URINE NEGATIVE (NEGATIVE); COCAINE SCREEN URINE NEGATIVE (NEGATIVE); OPIATE SCREEN URINE NEGATIVE (NEGATIVE); TRICYCLIC ANTIDEPRESSANTS SCRE POSITIVE (NEGATIVE)
[2023-03-10 18:59] LABS: METHADONE STAT NEGATIVE (NEGATIVE); OXYCODONE STAT NEGATIVE (NEGATIVE); PROPOXYPHENE STAT NEGATIVE (NEGATIVE)
[2023-03-10 19:03] LABS: BILIRUBIN,URINE NEGATIVE (NEGATIVE); CLARITY,URINE CLEAR; COLOR,URINE YELLOW; GLUCOSE, URINE (UA) NEGATIVE (NEGATIVE); KETONES,URINE NEGATIVE (NEGATIVE); LEUKOCYTE ESTERASE ,URINE 1+ (NEGATIVE); NITRITE,URINE NEGATIVE (NEGATIVE); PH,URINE 5.5 (5-9); PROTEIN,URINE NEGATIVE (NEGATIVE)
[2023-03-10 19:04] LABS: AMORPHOUS SEDIMENT,UR RARE AMOR URATES /LPF; BACTERIA,URINE TRACE /HPF; RBC,URINE 0-2 /HPF
--- NOTE | 2023-03-10 19:46 | Diagnostic Imaging Report ---
EXAMINATION: Chest radiograph, portable AP view. DATE: 03/10/2023 7:31 PM INDICATION: 67-year-old female, cough. Hallucinations. COMPARISON: None. FINDINGS: Heart size and mediastinal contours are unremarkable. There is no identified pneumothorax, large pleural effusion or focal airspace consolidation. IMPRESSION: No identified acute cardiopulmonary abnormality. Dictated by: Dictated on workstation # [id number]
[2023-03-10 21:50] VITALS: BP 126/93
== END 2023-03-10 21:50 ==
LOC: EDUNIT# 16:49 → ER 16:55
DX: R44.1 Visual hallucinations (principal); Z20.822 Contact with and (suspected) exposure to COVID-19
CPT/HCPCS: 71045; 80053; 80306; 81000; 85025; 87636; 93005; 99283; G0480 ×3; 36415; 80320; 80329